=== PATIENT | female | born 1970 | race Caucasian/White ===

== ENCOUNTER 2016-08-25 12:26 | Emergency (ER) | payer OTHER | END 2016-08-25 15:55 | disposition other institution (70) | LOC: ER 12:26 | DX: G43.909 Migraine, unspecified, not intractable, without status migrainosus (principal); I51.9 Heart disease, unspecified; E11.9 Type 2 diabetes mellitus without complications; Z85.3 Personal history of malignant neoplasm of breast; Z90.49 Acquired absence of other specified parts of digestive tract; Z90.710 Acquired absence of both cervix and uterus; Z90.12 Acquired absence of left breast and nipple; Z79.899 Other long term (current) drug therapy; Z79.4 Long term (current) use of insulin; Z79.82 Long term (current) use of aspirin | CPT/HCPCS: 99282 ==

== ENCOUNTER 2016-08-26 16:52 | Emergency (ER) | payer OTHER | END 2016-08-26 20:20 | disposition home or self-care (01) | LOC: ER 16:52 | DX: G43.909 Migraine, unspecified, not intractable, without status migrainosus (principal); R11.2 Nausea with vomiting, unspecified; Z79.899 Other long term (current) drug therapy; Z79.82 Long term (current) use of aspirin; Z79.4 Long term (current) use of insulin | CPT/HCPCS: 93005; 96361; 96374; 96375; 99070; 99283-25; J2765 ==

== ENCOUNTER 2016-09-04 13:24 | Emergency (ER) | payer OTHER | END 2016-09-04 16:14 | disposition other institution (70) | LOC: ER 13:24 | DX: L03.031 Cellulitis of right toe (principal); Z85.3 Personal history of malignant neoplasm of breast; E11.9 Type 2 diabetes mellitus without complications; Z86.14 Personal history of Methicillin resistant Staphylococcus aureus infection; Z95.2 Presence of prosthetic heart valve; Z90.12 Acquired absence of left breast and nipple; Z79.82 Long term (current) use of aspirin; Z79.899 Other long term (current) drug therapy | CPT/HCPCS: 99284-25 ==

== ENCOUNTER 2016-09-04 13:24 | Inpatient (IN) | payer OTHER ==
[2016-09-04 14:23] LABS: BASO % 0.6 % (0.1-1.2); EOS # 0.1 10_X3_uL (0.0-0.4); EOS % 0.8 % (0.7-5.8); GRAN # 4.5 10_X3_uL (1.6-6.1); GRAN % 69.2 % (34.0-71.1); HEMATOCRIT 33.5 % (34-45); HEMOGLOBIN 10.9 g/dL (11.2-15.7); LYMPH # 1.2 10_X3_uL (1.2-3.7); LYMPH % 18.2 % (19.3-51.7); MEAN CORPUSCULAR HEMOGLOBIN 26.1 pg (27.0-33.0); MEAN CORPUSCULAR HGB CONC 32.5 g/dL (32.0-36.0); MEAN CORPUSCULAR VOLUME 80.1 fL (79-95); MEAN PLATELET VOLUME 9.2 fl (7.5-11.5); MONO # 0.7 10_X3_uL (0.2-0.9); MONO % 11.2 % (4.7-12.5); PLATELET COUNT 232 x10_3/uL (182-369); RED BLOOD COUNT 4.18 x10_6/uL (3.9-5.2); RED CELL DISTRIBUTION WIDTH 15.8 % (11.7-14.4); WHITE BLOOD COUNT 6.5 x10_3/uL (4.0-10.0)
[2016-09-04 14:40] LABS: ALBUMIN 3.9 gm/dL (3.4-5.0); ALKALINE PHOSPHATASE 97 U/L (50-136); ALT/SGPT 25 U/L (3.5-33.9); AST/SGOT 30 U/L (7.04-26.96); BILIRUBIN,TOTAL 0.38 mg/dL (0.0-1.0); BLOOD UREA NITROGEN 6 mg/dL (7-18); CALCIUM 9.3 mg/dL (8.7-10.7); CARBON DIOXIDE 29 mmol/L (21-32); CREATINE KINASE 157 U/L (21-215); CREATININE 0.5 mg/dL (0.6-1.3); GLUCOSE,RANDOM 188 mg/dL (70-99); POTASSIUM 4.2 mmol/L (3.5-5.1); SODIUM 132 mmol/L (136-145); TOTAL PROTEIN 7.7 gm/dL (6.4-8.2)
[2016-09-04 14:54] LABS: URINE BILIRUBIN NEGATIVE (NEGATIVE); URINE BLOOD TRACE (NEGATIVE); URINE GLUCOSE (UA) NORMAL (NORMAL); URINE KETONE NEGATIVE (NEGATIVE); URINE LEUKOCYTE ESTERASE NEGATIVE (NEGATIVE); URINE NITRATE NEGATIVE (NEGATIVE); URINE PROTEIN TRACE (NEGATIVE)
[2016-09-04 14:57] LABS: URINE BACTERIA TRACE (NONE SEEN); URINE RBC 0-5 /[HPF] (0-2); URINE SQUAMOUS EPITHELIAL CELL 0-10 /[HPF] (NONE SEEN); URINE WBC 0-5 /[HPF] (0-5)
[2016-09-05 07:40] LABS: HEMATOCRIT 34.2 % (34-45); HEMOGLOBIN 10.8 g/dL (11.2-15.7); MEAN CORPUSCULAR HEMOGLOBIN 25.5 pg (27.0-33.0); MEAN CORPUSCULAR HGB CONC 31.6 g/dL (32.0-36.0); MEAN CORPUSCULAR VOLUME 80.7 fL (79-95); MEAN PLATELET VOLUME 9.3 fl (7.5-11.5); RED BLOOD COUNT 4.24 x10_6/uL (3.9-5.2)
[2016-09-05 07:50] LABS: AHDL CHOLESTEROL 21 mg/dL (>40); ALBUMIN 3.7 gm/dL (3.4-5.0); ALKALINE PHOSPHATASE 88 U/L (50-136); ALT/SGPT 23 U/L (3.5-33.9); AST/SGOT 31 U/L (7.04-26.96); BILIRUBIN,TOTAL 0.65 mg/dL (0.0-1.0); BLOOD UREA NITROGEN 7 mg/dL (7-18); CALCIUM 8.9 mg/dL (8.7-10.7); CARBON DIOXIDE 27 mmol/L (21-32); CHOLESTEROL 138 mg/dL (0-200); CREATININE < 0.5 mg/dL (0.6-1.3); GLUCOSE,RANDOM 224 mg/dL (70-99); LDL CHOLESTEROL 70 mg/dL (0-99); POTASSIUM 3.9 mmol/L (3.5-5.1); SODIUM 134 mmol/L (136-145); TOTAL PROTEIN 7.2 gm/dL (6.4-8.2); TRIGLYCERIDES 387 mg/dL (30-200)
[2016-09-06 05:27] LABS: HEMATOCRIT 34.5 % (34-45); HEMOGLOBIN 11.1 g/dL (11.2-15.7); MEAN CORPUSCULAR HGB CONC 32.2 g/dL (32.0-36.0); MEAN CORPUSCULAR VOLUME 80.8 fL (79-95); MEAN PLATELET VOLUME 9.2 fl (7.5-11.5); RED BLOOD COUNT 4.27 x10_6/uL (3.9-5.2); RED CELL DISTRIBUTION WIDTH 16.2 % (11.7-14.4); WHITE BLOOD COUNT 5.2 x10_3/uL (4.0-10.0)
[2016-09-06 05:34] LABS: BLOOD UREA NITROGEN 11 mg/dL (7-18); CALCIUM 8.8 mg/dL (8.7-10.7); CARBON DIOXIDE 26 mmol/L (21-32); CREATININE 0.5 mg/dL (0.6-1.3); GLUCOSE,RANDOM 341 mg/dL (70-99); POTASSIUM 4.2 mmol/L (3.5-5.1); SODIUM 134 mmol/L (136-145)
[2016-09-07 07:32] LABS: HEMATOCRIT 34.1 % (34-45); HEMOGLOBIN 11.1 g/dL (11.2-15.7); MEAN CORPUSCULAR HEMOGLOBIN 25.8 pg (27.0-33.0); MEAN CORPUSCULAR HGB CONC 32.6 g/dL (32.0-36.0); MEAN CORPUSCULAR VOLUME 79.3 fL (79-95); MEAN PLATELET VOLUME 9.7 fl (7.5-11.5); RED BLOOD COUNT 4.3 x10_6/uL (3.9-5.2); RED CELL DISTRIBUTION WIDTH 16.3 % (11.7-14.4)
[2016-09-07 07:43] LABS: ALBUMIN 3.6 gm/dL (3.4-5.0); ALKALINE PHOSPHATASE 93 U/L (50-136); ALT/SGPT 27 U/L (3.5-33.9); AST/SGOT 36 U/L (7.04-26.96); BILIRUBIN,TOTAL 0.58 mg/dL (0.0-1.0); BLOOD UREA NITROGEN 12 mg/dL (7-18); CALCIUM 8.7 mg/dL (8.7-10.7); CARBON DIOXIDE 25 mmol/L (21-32); CREATININE < 0.5 mg/dL (0.6-1.3); GLUCOSE,RANDOM 228 mg/dL (70-99); SODIUM 135 mmol/L (136-145); TOTAL PROTEIN 7.6 gm/dL (6.4-8.2)
[2016-09-08 07:34] LABS: HEMATOCRIT 37.1 % (34-45); HEMOGLOBIN 12.1 g/dL (11.2-15.7); MEAN CORPUSCULAR HEMOGLOBIN 25.7 pg (27.0-33.0); MEAN CORPUSCULAR HGB CONC 32.6 g/dL (32.0-36.0); MEAN CORPUSCULAR VOLUME 78.8 fL (79-95); MEAN PLATELET VOLUME 9.5 fl (7.5-11.5); RED BLOOD COUNT 4.71 x10_6/uL (3.9-5.2); RED CELL DISTRIBUTION WIDTH 16.4 % (11.7-14.4); WHITE BLOOD COUNT 8.7 x10_3/uL (4.0-10.0)
[2016-09-08 07:48] LABS: BLOOD UREA NITROGEN 15 mg/dL (7-18); CALCIUM 9.3 mg/dL (8.7-10.7); CARBON DIOXIDE 26 mmol/L (21-32); CREATININE < 0.5 mg/dL (0.6-1.3); GLUCOSE,RANDOM 211 mg/dL (70-99); POTASSIUM 4.2 mmol/L (3.5-5.1); SODIUM 135 mmol/L (136-145)
== END 2016-09-08 13:30 | disposition home or self-care (01) | DRG 872 ==
LOC: ER 13:24 → MS 16:14
PROVIDERS: Emergency Medicine; ADMIT Family Medicine
PROC: 0H9MXZZ Drainage of Right Foot Skin, External Approach (ICD-10-PCS; principal; 2016-09-05)
DX: A41.9 Sepsis, unspecified organism (principal); I38 Endocarditis, valve unspecified; L03.031 Cellulitis of right toe; E11.622 Type 2 diabetes mellitus with other skin ulcer; Z85.3 Personal history of malignant neoplasm of breast; Z89.421 Acquired absence of other right toe(s); Z90.12 Acquired absence of left breast and nipple; Z95.3 Presence of xenogenic heart valve; Z86.14 Personal history of Methicillin resistant Staphylococcus aureus infection; B96.89 Other specified bacterial agents as the cause of diseases classified elsewhere; E11.65 Type 2 diabetes mellitus with hyperglycemia; Z79.4 Long term (current) use of insulin; Z79.899 Other long term (current) drug therapy; Z79.82 Long term (current) use of aspirin
CPT/HCPCS: 36415; 71020; 73630; 80048; 80053; 80061; 80202; 81001; 82550; 82553; 82962; 83036; 83605; 85025; 87040; 87070; 87075; 87186; 93005; 96365; 99070; 99284-25; J3370; J7050